=== PATIENT | male | born 1935 | race Caucasian/White ===

== ENCOUNTER 2020-01-23 03:52 | Inpatient (IN) ==
[2020-01-23 07:19] LABS: Adenovirus Not Detected (Not Detect); Bordetella Pertussis Not Detected (Not Detect); Chlamydophila pneumoniae Not Detected (Not Detect); Coronavirus 229E Not Detected (Not Detect); Coronavirus HKU1 Not Detected (Not Detect); Coronavirus NL63 Not Detected (Not Detect); Coronavirus OC43 Not Detected (Not Detect); Human Metapneumovirus Not Detected (Not Detect); Human Rhinovirus/Enterovirus Not Detected (Not Detect); Influenza A Subtype 2009 H1 Not Detected (Not Detect); Influenza B Not Detected (Not Detect); Mycoplasma pneumoniae Not Detected (Not Detect); Parainfluenza Virus 1 Not Detected (Not Detect); Parainfluenza Virus 2 Not Detected (Not Detect); Parainfluenza Virus 3 Not Detected (Not Detect); Parainfluenza Virus 4 Not Detected (Not Detect); Respiratory Syncytial Virus Not Detected (Not Detect); SARS-CoV-2 Not Detected (Not Detect)
[2020-01-23] MEDS ORDERED: Naloxone 0.4 MG/ML INJ IVP PRN (07:23)
[2020-01-23] MEDS ORDERED: Acetaminophen 325 MG TABLET PO PRN (07:23)
[2020-01-23 08:51] LABS: Basophils % 0.1 %; Hematocrit 43.3 % (37.5-50.1); Hemoglobin 14.4 g/dL (12.9-16.9); Immature Granulocytes % 0.1 % (0-4); Immature Platelets 3.3 % (1.1-6.1); Lymphocytes # 0.6 K/mcL (0.6-4.6); Lymphocytes % 8.2 %; Mean Corpuscular HGB Conc 33.3 g/dL (31.6-35.5); Mean Corpuscular Hemoglobin 31.8 pg (28.0-33.3); Mean Corpuscular Volume 95.6 fL (83.0-100.0); Mean Platelet Volume 10.2 fL (9.4-12.4); Monocytes # 0.6 K/mcL (0.0-1.3); Monocytes % 7.7 %; Neutrophils # 6.2 K/mcL (1.6-8.9); Platelet Count 110 K/mcL (140-400); Red Blood Count 4.53 M/mcL (4.19-5.50); Red Cell Distribution Width 12.4 % (11.5-14.5); Segmented Neutrophils % 83.9 %; White Blood Count 7.4 K/mcL (4.3-11.1)
[2020-01-23 08:57] LABS: INR 1.1; Prothrombin Time 12.2 Seconds (9.4-12.1)
[2020-01-23 09:03] LABS: Chol/HDL Ratio 4.1 (0-4.9); Magnesium 1.6 mg/dL (1.6-2.6)
[2020-01-23 09:05] LABS: Albumin 3.8 g/dL (3.5-5.7); Albumin/Globulin Ratio 1.6 (1.1-2.2); BUN/Creatinine Ratio 16 (6-26); Bilirubin,Indirect 2.2 mg/dL (0.0-1.0); Bilirubin,Total 5.2 mg/dL (0.3-1.0); Blood Urea Nitrogen 15 mg/dL (8-23); Carbon Dioxide 24 mEq/L (23-29); Chloride 105 mEq/L (98-107); Globulin 2.4 g/dL (2.4-3.5); Glucose 169 mg/dL (70-105); Osmolality,Calculated 291 (280-300); Potassium 3.8 mEq/L (3.5-5.1); Sodium 138 mEq/L (136-145); Total Protein 6.2 g/dL (6.4-8.9); eGFR For African Americans > 60 (> 60); eGFR For Non-African Americans > 60 (> 60)
[2020-01-23] MEDS: Piperacillin/Tazobactam 3.375 GM in 0.9 % Sodium Chloride Mini Bag 100 ML IVPB SCH ×3 (09:54→22:58)
[2020-01-23] MEDS ORDERED: 0.9 % Sodium Chloride 1,000 ML IV ONE (13:02)
[2020-01-23] MEDS ORDERED: Isovue-370 500 ML BOTTLE IVP ONE (13:03)
[2020-01-23 14:47] LABS: Albumin 3.7 g/dL (3.5-5.7); Albumin/Globulin Ratio 1.5 (1.1-2.2); Bilirubin,Direct 3.8 mg/dL (0.0-0.2); Bilirubin,Indirect 2.8 mg/dL (0.0-1.0); Bilirubin,Total 6.6 mg/dL (0.3-1.0); Globulin 2.4 g/dL (2.4-3.5); Total Protein 6.1 g/dL (6.4-8.9)
[2020-01-23 15:09] LABS: Hepatitis B Surface Antigen Nonreactive (Nonreactive)
[2020-01-23 15:39] LABS: Hepatitis C Virus Antibody Nonreactive (Nonreactive)
[2020-01-23 16:02] LABS: Hepatitis A Antibody IgM Nonreactive (Nonreactive)
[2020-01-23] MEDS: Ondansetron 4 MG/2 ML VIAL IVP PRN (20:40)
[2020-01-24] MEDS ORDERED: Prochlorperazine 10 MG/2 ML VIAL IVP PRN (02:02)
[2020-01-24] MEDS ORDERED: Ibuprofen 800 MG TABLET PO ONE (02:03)
[2020-01-24] MEDS: Ondansetron 4 MG/2 ML VIAL IVP PRN (06:17)
[2020-01-24 07:58] LABS: Immature Granulocytes % 0.3 % (0-4); Mean Platelet Volume 10.5 fL (9.4-12.4); Red Cell Distribution Width 12.6 % (11.5-14.5)
[2020-01-24 07:59] LABS: Eosinophils % 0.8 %; Hematocrit 39.3 % (37.5-50.1); Hemoglobin 13.2 g/dL (12.9-16.9); Immature Platelets 3.8 % (1.1-6.1); Lymphocytes # 0.4 K/mcL (0.6-4.6); Lymphocytes % 10.2 %; Mean Corpuscular HGB Conc 33.6 g/dL (31.6-35.5); Mean Corpuscular Hemoglobin 32.6 pg (28.0-33.3); Monocytes # 0.2 K/mcL (0.0-1.3); Monocytes % 5.4 %; Neutrophils # 3.1 K/mcL (1.6-8.9); Red Blood Count 4.05 M/mcL (4.19-5.50); Segmented Neutrophils % 83.3 %; White Blood Count 3.7 K/mcL (4.3-11.1)
[2020-01-24 08:07] LABS: BUN/Creatinine Ratio 15 (6-26); Blood Urea Nitrogen 18 mg/dL (8-23); Calcium 8.4 mg/dL (8.6-10.3); Carbon Dioxide 25 mEq/L (23-29); Chloride 104 mEq/L (98-107); Glucose 121 mg/dL (70-105); Magnesium 1.7 mg/dL (1.6-2.6); Osmolality,Calculated 289 (280-300); Potassium 3.3 mEq/L (3.5-5.1); Sodium 138 mEq/L (136-145); eGFR For African Americans > 60 (> 60); eGFR For Non-African Americans 57 (> 60)
[2020-01-24 08:09] LABS: Albumin 3.3 g/dL (3.5-5.7); Albumin/Globulin Ratio 1.5 (1.1-2.2); Bilirubin,Direct 4.5 mg/dL (0.0-0.2); Bilirubin,Indirect 3.9 mg/dL (0.0-1.0); Bilirubin,Total 8.4 mg/dL (0.3-1.0); Globulin 2.2 g/dL (2.4-3.5); Total Protein 5.5 g/dL (6.4-8.9)
[2020-01-24] MEDS: Piperacillin/Tazobactam 3.375 GM in 0.9 % Sodium Chloride Mini Bag 100 ML IVPB SCH ×2 (08:12→15:50)
[2020-01-24 08:16] LABS: Platelet Count 86 K/mcL (140-400); Platelet Estimate Slight Decrease (Normal)
[2020-01-24] MEDS: Ringers Solution, Lactated 1,000 ML IVC SCH (11:03)
[2020-01-24] MEDS ORDERED: Lidocaine HCL 4 ML Topical Solution (Laryng-O-Jet Kit Sterile Pak) TP ONE (11:19)
[2020-01-24] MEDS ORDERED: Lidocaine -MPF 2% 2 ML VIAL ONE (11:20)
[2020-01-24] MEDS ORDERED: Ondansetron 4 MG/2 ML VIAL ONE (11:20)
[2020-01-24] MEDS ORDERED: *HR* Succinylcholine 200 MG/10 ML VIAL IVP ONE (11:20)
[2020-01-24] MEDS ORDERED: Dexamethasone 4 MG/ML VIAL ONE (11:20)
[2020-01-24] MEDS ORDERED: *HR* Propofol 200 MG/20 ML VIAL IVP ONE (11:20)
[2020-01-24] MEDS ORDERED: *HR* HYDROmorphone PF 0.5 MG/0.5 ML SYRINGE IVP PRN (11:27)
[2020-01-24] MEDS ORDERED: *HR* Promethazine 25 MG/ML VIAL IVP PRN (11:27)
[2020-01-24] MEDS ORDERED: *HR* OxyCODONE Immed Rel 5 MG TABLET PO PRN (11:27)
[2020-01-24] MEDS ORDERED: Ondansetron 4 MG/2 ML VIAL IVP PRN (11:27)
[2020-01-24] MEDS ORDERED: *HR* FentaNYL (PF) 100 MCG/2 ML VIAL ONE (11:28)
[2020-01-24] MEDS ORDERED: *HR* PHENYLEPHRINE 1,000 MCG/10 ML SYRINGE IVP ONE (12:01)
[2020-01-24] MEDS ORDERED: EPHEDrine 50 MG/ML VIAL ONE (12:06)
[2020-01-24 17:25] LABS: Mean Corpuscular Hemoglobin 31.6 pg (28.0-33.3); Mean Corpuscular Volume 96.1 fL (83.0-100.0)
[2020-01-24 17:27] LABS: Hematocrit 39.6 % (37.5-50.1); Immature Platelets 5.8 % (1.1-6.1); Mean Corpuscular HGB Conc 32.8 g/dL (31.6-35.5); Mean Platelet Volume 10.8 fL (9.4-12.4); Red Blood Count 4.12 M/mcL (4.19-5.50); White Blood Count 7.2 K/mcL (4.3-11.1)
[2020-01-25] MEDS: Piperacillin/Tazobactam 3.375 GM in 0.9 % Sodium Chloride Mini Bag 100 ML IVPB SCH ×3 (00:35→17:05)
[2020-01-25] MEDS: Ringers Solution, Lactated 1,000 ML IVC SCH (00:39)
[2020-01-25 06:59] LABS: Eosinophils % 0.2 %; Hematocrit 36.4 % (37.5-50.1); Hemoglobin 12.1 g/dL (12.9-16.9); Immature Granulocytes % 0.4 % (0-4); Lymphocytes # 0.5 K/mcL (0.6-4.6); Lymphocytes % 11.3 %; Mean Corpuscular HGB Conc 33.2 g/dL (31.6-35.5); Mean Corpuscular Hemoglobin 31.9 pg (28.0-33.3); Mean Platelet Volume 10.8 fL (9.4-12.4); Monocytes # 0.4 K/mcL (0.0-1.3); Monocytes % 8.5 %; Neutrophils # 3.7 K/mcL (1.6-8.9); Platelet Count 87 K/mcL (140-400); Red Blood Count 3.79 M/mcL (4.19-5.50); Segmented Neutrophils % 79.6 %; White Blood Count 4.7 K/mcL (4.3-11.1)
[2020-01-25 07:01] LABS: INR 1.2; Prothrombin Time 13.7 Seconds (9.4-12.1)
[2020-01-25 07:18] LABS: Alanine Aminotransferase 115 Units/L (7-52); Albumin 3.2 g/dL (3.5-5.7); Albumin/Globulin Ratio 1.4 (1.1-2.2); Alkaline Phosphatase 136 Units/L (34-104); Aspartate Amino Transferase 78 Units/L (13-39); BUN/Creatinine Ratio 17 (6-26); Bilirubin,Total 5.8 mg/dL (0.3-1.0); Blood Urea Nitrogen 16 mg/dL (8-23); Calcium 8.3 mg/dL (8.6-10.3); Carbon Dioxide 23 mEq/L (23-29); Chloride 108 mEq/L (98-107); Globulin 2.3 g/dL (2.4-3.5); Glucose 142 mg/dL (70-105); Lipase 4 Units/L (11-82); Magnesium 1.9 mg/dL (1.6-2.6); Osmolality,Calculated 294 (280-300); Potassium 3.7 mEq/L (3.5-5.1); Sodium 140 mEq/L (136-145); Total Protein 5.5 g/dL (6.4-8.9); eGFR For African Americans > 60 (> 60); eGFR For Non-African Americans > 60 (> 60)
[2020-01-25] MEDS ORDERED: Perflutren Lipid Microsphere 1.3 ML in 0.9 % Sodium Chloride 8.7 ML IVP PRN (14:21)
[2020-01-25] MEDS: amLODIPine 5 MG TABLET PO SCH (17:06)
[2020-01-25] MEDS ORDERED: Primidone 50 MG TABLET PO SCH (18:00)
[2020-01-25] MEDS: Magnesium Oxide 400 MG TABLET PO SCH (21:19)
[2020-01-26] MEDS: Piperacillin/Tazobactam 3.375 GM in 0.9 % Sodium Chloride Mini Bag 100 ML IVPB SCH ×4 (00:53→23:27)
[2020-01-26 01:28] LABS: Red Blood Count 3.55 M/mcL (4.19-5.50); Red Cell Distribution Width 13.2 % (11.5-14.5)
[2020-01-26 01:30] LABS: Hemoglobin 11.4 g/dL (12.9-16.9); Immature Platelets 7.4 % (1.1-6.1); Mean Corpuscular HGB Conc 33.5 g/dL (31.6-35.5); Mean Corpuscular Hemoglobin 32.1 pg (28.0-33.3); Mean Corpuscular Volume 95.8 fL (83.0-100.0); White Blood Count 4.2 K/mcL (4.3-11.1)
[2020-01-26 01:46] LABS: Albumin 3.1 g/dL (3.5-5.7); Albumin/Globulin Ratio 1.3 (1.1-2.2); Bilirubin,Direct 1.8 mg/dL (0.0-0.2); Bilirubin,Indirect 1.6 mg/dL (0.0-1.0); Bilirubin,Total 3.4 mg/dL (0.3-1.0); Globulin 2.3 g/dL (2.4-3.5); Total Protein 5.4 g/dL (6.4-8.9)
[2020-01-26] MEDS ORDERED: *HR* Propofol 200 MG/20 ML VIAL IVP ONE (07:12)
[2020-01-26] MEDS ORDERED: *HR* FentaNYL (PF) 100 MCG/2 ML VIAL ONE (07:12)
[2020-01-26] MEDS ORDERED: Isovue-300 50ML VIAL ONE (07:16)
[2020-01-26] MEDS ORDERED: Lidocaine -MPF 2% 2 ML VIAL ONE (07:16)
[2020-01-26] MEDS ORDERED: *HR* Succinylcholine 200 MG/10 ML VIAL IVP ONE (07:16)
[2020-01-26] MEDS ORDERED: *HR* Rocuronium Bromide 50 MG/5 ML VIAL ONE (07:16)
[2020-01-26] MEDS ORDERED: Lidocaine HCL 4 ML Topical Solution (Laryng-O-Jet Kit Sterile Pak) TP ONE (07:17)
[2020-01-26] MEDS ORDERED: Dexamethasone 4 MG/ML VIAL ONE (07:18)
[2020-01-26] MEDS ORDERED: Ondansetron 4 MG/2 ML VIAL ONE (07:18)
[2020-01-26] MEDS ORDERED: *HR* HYDROmorphone PF 0.5 MG/0.5 ML SYRINGE IVP PRN (07:25)
[2020-01-26] MEDS ORDERED: *HR* OxyCODONE Immed Rel 5 MG TABLET PO PRN (07:25)
[2020-01-26] MEDS ORDERED: *HR* Promethazine 25 MG/ML VIAL IVP PRN (07:25)
[2020-01-26] MEDS ORDERED: Ondansetron 4 MG/2 ML VIAL IVP PRN ×2 (07:25→12:54)
[2020-01-26] MEDS: Ringers Solution, Lactated 1,000 ML IVC SCH (08:52)
[2020-01-26] MEDS: amLODIPine 5 MG TABLET PO SCH (09:10)
[2020-01-26] MEDS: Magnesium Oxide 400 MG TABLET PO SCH ×2 (09:10→20:02)
[2020-01-26] MEDS ORDERED: *HR* HYDROMORPHONE 2 MG/ML VIAL ONE (11:12)
[2020-01-26] MEDS ORDERED: *HR* OxyCODONE/APAP 5/325 TABLET PO PRN (12:54)
[2020-01-26] MEDS ORDERED: Naloxone 0.4 MG/ML INJ IVP PRN (12:54)
[2020-01-26] MEDS ORDERED: Primidone 50 MG TABLET PO SCH (18:00)
[2020-01-27 03:36] LABS: Red Cell Distribution Width 13.2 % (11.5-14.5)
[2020-01-27 03:38] LABS: Hematocrit 36.7 % (37.5-50.1); Immature Platelets 7.6 % (1.1-6.1); Mean Corpuscular HGB Conc 32.7 g/dL (31.6-35.5); Mean Corpuscular Hemoglobin 31.8 pg (28.0-33.3); Mean Corpuscular Volume 97.3 fL (83.0-100.0); Mean Platelet Volume 11.5 fL (9.4-12.4); Red Blood Count 3.77 M/mcL (4.19-5.50); White Blood Count 5.3 K/mcL (4.3-11.1)
[2020-01-27 03:56] LABS: Alanine Aminotransferase 104 Units/L (7-52); Albumin 3.2 g/dL (3.5-5.7); Albumin/Globulin Ratio 1.3 (1.1-2.2); Alkaline Phosphatase 132 Units/L (34-104); Aspartate Amino Transferase 102 Units/L (13-39); BUN/Creatinine Ratio 17 (6-26); Bilirubin,Direct 1.5 mg/dL (0.0-0.2); Bilirubin,Indirect 1.9 mg/dL (0.0-1.0); Bilirubin,Total 3.4 mg/dL (0.3-1.0); Blood Urea Nitrogen 16 mg/dL (8-23); Calcium 8.4 mg/dL (8.6-10.3); Carbon Dioxide 23 mEq/L (23-29); Chloride 106 mEq/L (98-107); Globulin 2.4 g/dL (2.4-3.5); Glucose 124 mg/dL (70-105); Osmolality,Calculated 291 (280-300); Potassium 3.9 mEq/L (3.5-5.1); Sodium 139 mEq/L (136-145); Total Protein 5.6 g/dL (6.4-8.9); eGFR For African Americans > 60 (> 60); eGFR For Non-African Americans > 60 (> 60)
[2020-01-27 07:04] VITALS: BP 162/86
[2020-01-27] MEDS ORDERED: amLODIPine 5 MG TABLET PO SCH (09:00)
[2020-01-27] MEDS: Piperacillin/Tazobactam 3.375 GM in 0.9 % Sodium Chloride Mini Bag 100 ML IVPB SCH (09:40)
[2020-01-27] MEDS: Magnesium Oxide 400 MG TABLET PO SCH (09:40)
== END 2020-01-27 15:56 | disposition home health service (06) | DRG 853 ==
LOC: 3ANU → SUATTDRO 05:57
PROVIDERS: ADMIT Pharmacist; ATTEND Internal Medicine